=== PATIENT | male | born 1965 | race Caucasian/White ===

== ENCOUNTER 2020-09-08 11:14 | Inpatient (IN) ==
[2020-09-08] MEDS ORDERED: Isovue-370 500 ML BOTTLE IVP ONE (11:20)
[2020-09-08] MEDS ORDERED: Ondansetron 4 MG/2 ML VIAL IVP ONE (11:20)
[2020-09-08] MEDS ORDERED: 0.9 % Sodium Chloride 1,000 ML IVC ONE (11:20)
[2020-09-08] MEDS ORDERED: *HR* HYDROmorphone (PF) 1 MG/ML SYRINGE IVP ONE ×3 (11:35→15:37)
[2020-09-08 11:54] LABS: Basophils # 0.1 K/mcL (0.0-0.2); Basophils % 0.5 %; Eosinophils # 0.1 K/mcL (0.0-0.6); Hematocrit 46.4 % (37.5-50.1); Hemoglobin 15.4 g/dL (12.9-16.9); Immature Granulocytes % 0.6 % (0-4); Lymphocytes # 2.2 K/mcL (0.6-4.6); Lymphocytes % 16.2 %; Mean Corpuscular HGB Conc 33.2 g/dL (31.6-35.5); Mean Corpuscular Hemoglobin 28.5 pg (28.0-33.3); Mean Corpuscular Volume 85.9 fL (83.0-100.0); Mean Platelet Volume 9.8 fL (9.4-12.4); Monocytes # 1.2 K/mcL (0.0-1.3); Monocytes % 8.3 %; Neutrophils # 10.1 K/mcL (1.6-8.9); Platelet Count 380 K/mcL (140-400); Red Cell Distribution Width 13.6 % (11.5-14.5); Segmented Neutrophils % 73.4 %; White Blood Count 13.8 K/mcL (4.3-11.1)
[2020-09-08 12:13] LABS: Alanine Aminotransferase 23 Units/L (7-52); Albumin 4.2 g/dL (3.5-5.7); Albumin/Globulin Ratio 1.2 (1.1-2.2); Alkaline Phosphatase 77 Units/L (34-104); Aspartate Amino Transferase 23 Units/L (13-39); BUN/Creatinine Ratio 14 (6-26); Bilirubin,Direct 0.1 mg/dL (0.0-0.2); Bilirubin,Indirect 0.7 mg/dL (0.0-1.0); Bilirubin,Total 0.8 mg/dL (0.3-1.0); Blood Urea Nitrogen 13 mg/dL (6-20); Calcium 9.6 mg/dL (8.6-10.3); Carbon Dioxide 23 mEq/L (23-29); Chloride 101 mEq/L (98-107); Globulin 3.4 g/dL (2.4-3.5); Glucose 131 mg/dL (70-105); Lipase 9 Units/L (11-82); Osmolality,Calculated 280 (280-300); Potassium 4.1 mEq/L (3.5-5.1); Sodium 134 mEq/L (136-145); Total Protein 7.6 g/dL (6.4-8.9); eGFR For African Americans > 60 (> 60); eGFR For Non-African Americans > 60 (> 60)
[2020-09-08 13:11] LABS: Bacteria,Urine Few per hpf (None-Few); Bilirubin,Urine Negative (Negative); Blood,Urine Trace (Negative); Clarity,Urine Clear (Clear); Color,Urine Yellow (Yellow); Glucose,Urine (UA) Normal (Normal); Ketones,Urine 20 mg/dL (Negative); Leukocyte Esterase,Urine Negative (Negative); Mucus,Urine Few per lpf (None-Few); Nitrite,Urine Negative (Negative); PH,Urine 6.5 pH Units (5.0-8.0); Protein,Urine 50 mg/dL (Neg-Trace); Specific Gravity,Urine 1.023 (1.010-1.025); WBC,Urine 0-3 per hpf (0-3)
[2020-09-08] MEDS ORDERED: *HR* LORazepam 2 MG/ML VIAL IVP ONE (14:15)
[2020-09-08] MEDS ORDERED: Piperacillin/Tazobactam 3.375 GM in Water for inj. (sterile) 20 ML IVP ONE (15:37)
[2020-09-08] MEDS ORDERED: 0.9 % Sodium Chloride 1,000 ML IVC SCH (15:45)
[2020-09-08] MEDS ORDERED: Naloxone 0.4 MG/ML INJ IVP PRN (15:50)
[2020-09-08] MEDS ORDERED: Ondansetron 4 MG/2 ML VIAL IVP PRN ×2 (15:50→21:55)
[2020-09-08] MEDS ORDERED: *HR* Dextrose 50 % in Water (Vial) 50 ML VIAL IVP PRN (15:52)
[2020-09-08] MEDS ORDERED: Dextrose Gel 15 GM/37.5 ML TUBE PO PRN ×2 (15:52)
[2020-09-08] MEDS ORDERED: D5% in Water 1,000 ML IVC PRN (15:52)
[2020-09-08] MEDS ORDERED: Ringers Solution, Lactated 1,000 ML IVC SCH (16:00)
[2020-09-08] MEDS ORDERED: Piperacillin/Tazobactam 3.375 GM in 0.9 % Sodium Chloride Mini Bag 100 ML IVPB SCH (16:00)
[2020-09-08] MEDS ORDERED: Ipratropium/Albuterol Neb 3 ML IH PRN (16:10)
[2020-09-08] MEDS ORDERED: Insulin LISPRO 300 UNITS/3 ML VIAL SUBQ SCH (18:00)
[2020-09-08 18:32] LABS: INR 1.2; Prothrombin Time 13.3 Seconds (9.4-12.1)
[2020-09-08 18:34] LABS: Activated Partial Thrombo Time 28.2 Seconds (26.0-36.0)
[2020-09-08] MEDS ORDERED: Morphine Sulfate 2 MG/ML SYRINGE IVP ONE (19:42)
[2020-09-08] MEDS ORDERED: Acetaminophen IV 1,000 MG/100 ML BAG IVPB ONE (19:47)
[2020-09-08] MEDS ORDERED: Famotidine 20 MG/2 ML VIAL ONE (19:47)
[2020-09-08] MEDS ORDERED: *HR* Propofol 200 MG/20 ML VIAL IVP ONE ×2 (22:00→23:08)
[2020-09-08] MEDS ORDERED: Ondansetron 4 MG/2 ML VIAL ONE (22:00)
[2020-09-08] MEDS ORDERED: *HR* Rocuronium Bromide 50 MG/5 ML VIAL ONE (22:00)
[2020-09-08] MEDS ORDERED: Lidocaine HCL 4 ML Topical Solution (Laryng-O-Jet Kit Sterile Pak) TP ONE (22:00)
[2020-09-08] MEDS ORDERED: Lidocaine -MPF 2% 2 ML VIAL ONE (22:00)
[2020-09-08] MEDS ORDERED: *HR* FentaNYL (PF) 100 MCG/2 ML VIAL ONE ×2 (22:00→23:41)
[2020-09-08] MEDS ORDERED: *HR* HYDROMORPHONE 2 MG/ML VIAL ONE (23:02)
[2020-09-09] MEDS: *HR* HYDROmorphone PF 0.5 MG/0.5 ML SYRINGE IVP PRN ×4 (00:09→00:27)
[2020-09-09] MEDS ORDERED: Ketorolac 30 MG/ML VIAL IVP ONE (00:24)
[2020-09-09] MEDS ORDERED: *HR* Labetalol 20 MG/4 ML SYRINGE IVP ONE (00:38)
[2020-09-09] MEDS: *HR* Labetalol 20 MG/4 ML SYRINGE IVP PRN ×4 (00:40→01:06)
[2020-09-09] MEDS: *HR* HYDROmorphone (PF) 1 MG/ML SYRINGE IVP PRN ×2 (00:48→01:06)
[2020-09-09] MEDS ORDERED: Ondansetron 4 MG/2 ML VIAL IVP PRN (01:18)
[2020-09-09] MEDS ORDERED: D5% in Water 1,000 ML IVC PRN (01:18)
[2020-09-09] MEDS ORDERED: Dextrose Gel 15 GM/37.5 ML TUBE PO PRN ×2 (01:18)
[2020-09-09] MEDS ORDERED: *HR* Dextrose 50 % in Water (Vial) 50 ML VIAL IVP PRN (01:18)
[2020-09-09] MEDS ORDERED: Ringers Solution, Lactated 1,000 ML IVC SCH (01:18)
[2020-09-09] MEDS ORDERED: Naloxone 0.4 MG/ML INJ IVP PRN (01:18)
[2020-09-09] MEDS ORDERED: Ipratropium/Albuterol Neb 3 ML IH PRN (01:18)
[2020-09-09] MEDS: 0.9 % Sodium Chloride 1,000 ML IVC SCH ×3 (01:30→17:54)
[2020-09-09] MEDS ORDERED: *HR* HYDROmorphone (PF) 1 MG/ML SYRINGE IVP ONE (04:53)
[2020-09-09] MEDS: Insulin LISPRO 300 UNITS/3 ML VIAL SUBQ SCH ×3 (05:37→17:55)
[2020-09-09 07:40] LABS: Basophils % 0.2 %; Hematocrit 38.8 % (37.5-50.1); Immature Granulocytes % 0.5 % (0-4); Lymphocytes # 1.1 K/mcL (0.6-4.6); Lymphocytes % 8.2 %; Mean Corpuscular HGB Conc 33.2 g/dL (31.6-35.5); Mean Corpuscular Hemoglobin 28.4 pg (28.0-33.3); Mean Corpuscular Volume 85.5 fL (83.0-100.0); Mean Platelet Volume 10.7 fL (9.4-12.4); Monocytes # 0.9 K/mcL (0.0-1.3); Monocytes % 6.9 %; Platelet Count 342 K/mcL (140-400); Red Blood Count 4.54 M/mcL (4.19-5.50); Red Cell Distribution Width 13.7 % (11.5-14.5); Segmented Neutrophils % 84.2 %; White Blood Count 13.1 K/mcL (4.3-11.1)
[2020-09-09 07:44] LABS: Hemoglobin 12.9 g/dL (12.9-16.9)
[2020-09-09 07:55] LABS: BUN/Creatinine Ratio 17 (6-26); Blood Urea Nitrogen 15 mg/dL (6-20); Calcium 8.3 mg/dL (8.6-10.3); Carbon Dioxide 24 mEq/L (23-29); Chloride 103 mEq/L (98-107); Glucose 179 mg/dL (70-105); Magnesium 1.7 mg/dL (1.6-2.6); Osmolality,Calculated 287 (280-300); Potassium 3.9 mEq/L (3.5-5.1); Sodium 136 mEq/L (136-145); eGFR For African Americans > 60 (> 60); eGFR For Non-African Americans > 60 (> 60)
[2020-09-09] MEDS: Morphine Sulfate 2 MG/ML SYRINGE IVP PRN ×4 (08:02→20:16)
[2020-09-09] MEDS: Piperacillin/Tazobactam 3.375 GM in 0.9 % Sodium Chloride Mini Bag 100 ML IVPB SCH ×2 (08:07→15:52)
[2020-09-09] MEDS ORDERED: ICYHOT TP PRN (19:43)
[2020-09-09 20:14] LABS: Acinetobacter baumannii by PCR Not Detected (Not Detect); Candida albicans by PCR Not Detected (Not Detect); Candida glabrata by PCR Not Detected (Not Detect); Candida krusei by PCR Not Detected (Not Detect); Candida parapsilosis by PCR Not Detected (Not Detect); Candida tropicalis by PCR Not Detected (Not Detect); Enterobacter cloacae Cmplx PCR Not Detected (Not Detect); Enterobacteriaceae by PCR Not Detected (Not Detect); Enterococcus by PCR Not Detected (Not Detect); Escherichia coli by PCR Not Detected (Not Detect); Klebsiella oxytoca by PCR Not Detected (Not Detect); Klebsiella pneumoniae by PCR Not Detected (Not Detect); Proteus by PCR Not Detected (Not Detect); Pseudomonas aeruginosa by PCR Not Detected (Not Detect); Serratia marcescens by PCR Not Detected (Not Detect); Staphylococcus aureus by PCR Not Detected (Not Detect); Staphylococcus by PCR Not Detected (Not Detect); Streptococcus agalactiae(B)PCR Not Detected (Not Detect); Streptococcus by PCR Not Detected (Not Detect); Streptococcus pneumoniae PCR Not Detected (Not Detect); Streptococcus pyogenes (A) PCR Not Detected (Not Detect); mecA Methicillin-Resist Gene Not Detected (Not Detect); vanA/B Vancomycin-Resist Genes Not Detected (Not Detect)
[2020-09-10] MEDS: Insulin LISPRO 300 UNITS/3 ML VIAL SUBQ SCH ×4 (00:04→19:10)
[2020-09-10] MEDS: Morphine Sulfate 2 MG/ML SYRINGE IVP PRN ×6 (00:06→23:33)
[2020-09-10] MEDS: Piperacillin/Tazobactam 3.375 GM in 0.9 % Sodium Chloride Mini Bag 100 ML IVPB SCH ×4 (00:07→23:33)
[2020-09-10] MEDS: 0.9 % Sodium Chloride 1,000 ML IVC SCH (01:58)
[2020-09-10] MEDS ORDERED: *HR* HYDROmorphone (PF) 1 MG/ML SYRINGE IVP ONE (02:04)
[2020-09-10 04:22] LABS: Basophils % 0.2 %; Eosinophils % 0.2 %; Hematocrit 38.2 % (37.5-50.1); Hemoglobin 12.8 g/dL (12.9-16.9); Immature Granulocytes % 0.5 % (0-4); Lymphocytes # 1.3 K/mcL (0.6-4.6); Lymphocytes % 7.3 %; Mean Corpuscular HGB Conc 33.5 g/dL (31.6-35.5); Mean Corpuscular Hemoglobin 28.4 pg (28.0-33.3); Mean Corpuscular Volume 84.7 fL (83.0-100.0); Mean Platelet Volume 9.9 fL (9.4-12.4); Monocytes # 1.2 K/mcL (0.0-1.3); Monocytes % 6.8 %; Neutrophils # 15.6 K/mcL (1.6-8.9); Platelet Count 385 K/mcL (140-400); Red Blood Count 4.51 M/mcL (4.19-5.50); Red Cell Distribution Width 13.9 % (11.5-14.5); White Blood Count 18.3 K/mcL (4.3-11.1)
[2020-09-10 04:44] LABS: BUN/Creatinine Ratio 18 (6-26); Blood Urea Nitrogen 14 mg/dL (6-20); Calcium 8.4 mg/dL (8.6-10.3); Carbon Dioxide 23 mEq/L (23-29); Chloride 105 mEq/L (98-107); Glucose 136 mg/dL (70-105); Magnesium 1.8 mg/dL (1.6-2.6); Osmolality,Calculated 287 (280-300); Phosphorous 2.5 mg/dL (2.7-4.5); Potassium 3.9 mEq/L (3.5-5.1); Sodium 137 mEq/L (136-145); eGFR For African Americans > 60 (> 60); eGFR For Non-African Americans > 60 (> 60)
[2020-09-10] MEDS ORDERED: Ketorolac 30 MG/ML VIAL IVP ONE (05:10)
[2020-09-10] MEDS ORDERED: Fluconazole 400 MG/200 ML 400 MG/200 ML BAG IVPB ONE (06:45)
[2020-09-10] MEDS ORDERED: 0.9 % Sodium Chloride 1,000 ML IVC SCH (07:41)
[2020-09-10] MEDS ORDERED: Methyl Salicylate/Menthol 85 APPL/85 GM TUBE TP PRN (10:17)
[2020-09-10] MEDS: *HR* Heparin 5,000 UNIT/ML VIAL SQ SCH (17:35)
[2020-09-11] MEDS: Insulin LISPRO 300 UNITS/3 ML VIAL SUBQ SCH ×4 (00:52→17:23)
[2020-09-11] MEDS: Morphine Sulfate 2 MG/ML SYRINGE IVP PRN ×3 (03:37→16:56)
[2020-09-11] MEDS: *HR* Heparin 5,000 UNIT/ML VIAL SQ SCH ×2 (05:20→16:57)
[2020-09-11 06:26] LABS: Basophils % 0.3 %; Eosinophils # 0.1 K/mcL (0.0-0.6); Eosinophils % 0.5 %; Hematocrit 35.3 % (37.5-50.1); Immature Granulocytes % 0.8 % (0-4); Lymphocytes # 1.6 K/mcL (0.6-4.6); Lymphocytes % 10.4 %; Mean Corpuscular Hemoglobin 28.9 pg (28.0-33.3); Mean Corpuscular Volume 85.1 fL (83.0-100.0); Mean Platelet Volume 10.4 fL (9.4-12.4); Monocytes # 1.2 K/mcL (0.0-1.3); Monocytes % 7.4 %; Neutrophils # 12.7 K/mcL (1.6-8.9); Platelet Count 399 K/mcL (140-400); Red Blood Count 4.15 M/mcL (4.19-5.50); Red Cell Distribution Width 14.2 % (11.5-14.5); Segmented Neutrophils % 80.6 %; White Blood Count 15.8 K/mcL (4.3-11.1)
[2020-09-11 06:49] LABS: BUN/Creatinine Ratio 21 (6-26); Blood Urea Nitrogen 16 mg/dL (6-20); Calcium 8.4 mg/dL (8.6-10.3); Carbon Dioxide 25 mEq/L (23-29); Chloride 105 mEq/L (98-107); Glucose 102 mg/dL (70-105); Magnesium 1.9 mg/dL (1.6-2.6); Osmolality,Calculated 289 (280-300); Phosphorous 3.1 mg/dL (2.7-4.5); Potassium 3.6 mEq/L (3.5-5.1); Sodium 139 mEq/L (136-145); eGFR For African Americans > 60 (> 60); eGFR For Non-African Americans > 60 (> 60)
[2020-09-11] MEDS: Piperacillin/Tazobactam 3.375 GM in 0.9 % Sodium Chloride Mini Bag 100 ML IVPB SCH ×2 (07:41→15:39)
[2020-09-11] MEDS: Fluconazole 200 MG/100 ML 200 MG/100 ML BAG IVPB SCH (07:41)
[2020-09-11] MEDS: Ketorolac 30 MG/ML VIAL IVP SCH ×3 (08:39→20:15)
[2020-09-11] MEDS: Acetaminophen IV 1,000 MG/100 ML BAG IVPB SCH ×3 (09:48→20:16)
[2020-09-11] MEDS: 0.9 % Sodium Chloride 1,000 ML IVC SCH (11:34)
[2020-09-11] MEDS: Ondansetron 4 MG/2 ML VIAL IVP PRN ×2 (11:40→23:24)
[2020-09-12] MEDS: Piperacillin/Tazobactam 3.375 GM in 0.9 % Sodium Chloride Mini Bag 100 ML IVPB SCH ×2 (00:22→11:16)
[2020-09-12] MEDS: 0.9 % Sodium Chloride 1,000 ML IVC SCH ×3 (00:23→23:58)
[2020-09-12] MEDS: Morphine Sulfate 2 MG/ML SYRINGE IVP PRN ×5 (00:45→23:48)
[2020-09-12] MEDS: Insulin LISPRO 300 UNITS/3 ML VIAL SUBQ SCH ×4 (00:50→17:42)
[2020-09-12] MEDS: Ketorolac 30 MG/ML VIAL IVP SCH ×4 (03:28→20:15)
[2020-09-12] MEDS: Acetaminophen IV 1,000 MG/100 ML BAG IVPB SCH ×4 (03:28→20:15)
[2020-09-12] MEDS: *HR* Heparin 5,000 UNIT/ML VIAL SQ SCH ×2 (05:09→16:53)
[2020-09-12 07:00] LABS: Basophils # 0.1 K/mcL (0.0-0.2); Basophils % 0.3 %; Eosinophils # 0.1 K/mcL (0.0-0.6); Eosinophils % 0.8 %; Hematocrit 35.9 % (37.5-50.1); Hemoglobin 11.8 g/dL (12.9-16.9); Immature Granulocytes % 0.8 % (0-4); Lymphocytes # 1.7 K/mcL (0.6-4.6); Mean Corpuscular HGB Conc 32.9 g/dL (31.6-35.5); Mean Corpuscular Hemoglobin 28.2 pg (28.0-33.3); Mean Corpuscular Volume 85.9 fL (83.0-100.0); Mean Platelet Volume 10.2 fL (9.4-12.4); Monocytes # 1.4 K/mcL (0.0-1.3); Monocytes % 8.3 %; Neutrophils # 13.8 K/mcL (1.6-8.9); Platelet Count 452 K/mcL (140-400); Red Blood Count 4.18 M/mcL (4.19-5.50); Red Cell Distribution Width 14.3 % (11.5-14.5); Segmented Neutrophils % 79.8 %; White Blood Count 17.3 K/mcL (4.3-11.1)
[2020-09-12 07:48] LABS: BUN/Creatinine Ratio 26 (6-26); Blood Urea Nitrogen 18 mg/dL (6-20); Calcium 8.5 mg/dL (8.6-10.3); Carbon Dioxide 21 mEq/L (23-29); Chloride 104 mEq/L (98-107); Glucose 85 mg/dL (70-105); Magnesium 1.9 mg/dL (1.6-2.6); Osmolality,Calculated 285 (280-300); Phosphorous 3.3 mg/dL (2.7-4.5); Potassium 3.4 mEq/L (3.5-5.1); Sodium 137 mEq/L (136-145); eGFR For African Americans > 60 (> 60); eGFR For Non-African Americans > 60 (> 60)
[2020-09-12] MEDS: Fluconazole 200 MG/100 ML 200 MG/100 ML BAG IVPB SCH (08:32)
[2020-09-12] MEDS ORDERED: Ondansetron ODT 4 MG TAB.RAPDIS SL ONE (09:29)
[2020-09-12] MEDS: Ondansetron 4 MG/2 ML VIAL IVP PRN (11:22)
[2020-09-12] MEDS ORDERED: Scopolamine Patch 1.5 MG PATCH.TD72 TD ONE (13:18)
[2020-09-12] MEDS ORDERED: Metoclopramide 20 MG in 0.9 % Sodium Chloride 50 ML IVPB SCH (13:30)
[2020-09-12] MEDS ORDERED: Ondansetron 4 MG/2 ML VIAL IVP PRN ×2 (13:50→20:53)
[2020-09-12] MEDS ORDERED: Vancomycin 1,250 MG/262.5 ML IV.SOLN IVPB SCH (15:00)
[2020-09-12] MEDS ORDERED: Piperacillin/Tazobactam 3.375 GM in 0.9 % Sodium Chloride Mini Bag 100 ML IVPB SCH (19:00)
[2020-09-12] MEDS ORDERED: Ondansetron 4 MG/2 ML VIAL IVP ONE (19:03)
[2020-09-12] MEDS ORDERED: Morphine Sulfate 2 MG/ML SYRINGE IVP ONE (19:18)
[2020-09-12] MEDS ORDERED: *HR* Promethazine 25 MG/ML VIAL IM ONE (19:49)
[2020-09-12] MEDS ORDERED: *HR* Propofol 200 MG/20 ML VIAL IVP ONE (21:01)
[2020-09-12] MEDS ORDERED: *HR* FentaNYL (PF) 100 MCG/2 ML VIAL ONE (21:01)
[2020-09-12] MEDS ORDERED: Ondansetron 4 MG/2 ML VIAL ONE (21:02)
[2020-09-12] MEDS ORDERED: *HR* Rocuronium Bromide 50 MG/5 ML VIAL ONE (21:02)
[2020-09-12] MEDS ORDERED: Lidocaine HCL 4 ML Topical Solution (Laryng-O-Jet Kit Sterile Pak) TP ONE (21:02)
[2020-09-12] MEDS ORDERED: *HR* Succinylcholine 200 MG/10 ML VIAL IVP ONE (21:02)
[2020-09-12] MEDS ORDERED: Lidocaine -MPF 2% 2 ML VIAL ONE (21:02)
[2020-09-12] MEDS ORDERED: CefOXitin 2,000 MG VIAL ONE (21:43)
[2020-09-12] MEDS ORDERED: *HR* Labetalol 20 MG/4 ML SYRINGE IVP ONE (21:46)
[2020-09-12] MEDS ORDERED: Sugammadex Sodium 200 MG/2 ML VIAL IV ONE (22:14)
[2020-09-12] MEDS: *HR* HYDROmorphone PF 0.5 MG/0.5 ML SYRINGE IVP PRN ×4 (22:37→23:02)
[2020-09-12] MEDS ORDERED: Ringers Solution, Lactated 1,000 ML ONE (23:09)
[2020-09-13] MEDS ORDERED: *HR* Dextrose 50 % in Water (Vial) 50 ML VIAL IVP PRN (01:01)
[2020-09-13] MEDS ORDERED: Ipratropium/Albuterol Neb 3 ML IH PRN (01:01)
[2020-09-13] MEDS ORDERED: Methyl Salicylate/Menthol 85 APPL/85 GM TUBE TP PRN (01:01)
[2020-09-13] MEDS ORDERED: D5% in Water 1,000 ML IVC PRN (01:01)
[2020-09-13] MEDS ORDERED: Ondansetron 4 MG/2 ML VIAL IVP PRN (01:01)
[2020-09-13] MEDS ORDERED: Dextrose Gel 15 GM/37.5 ML TUBE PO PRN ×2 (01:01)
[2020-09-13] MEDS ORDERED: Naloxone 0.4 MG/ML INJ IVP PRN (01:01)
[2020-09-13] MEDS: Ketorolac 30 MG/ML VIAL IVP SCH ×2 (01:21→08:46)
[2020-09-13] MEDS: Piperacillin/Tazobactam 3.375 GM in 0.9 % Sodium Chloride Mini Bag 100 ML IVPB SCH ×3 (03:07→19:21)
[2020-09-13] MEDS: Acetaminophen IV 1,000 MG/100 ML BAG IVPB SCH ×5 (03:27→23:42)
[2020-09-13] MEDS: Vancomycin 1,250 MG/262.5 ML IV.SOLN IVPB SCH ×2 (03:27→15:48)
[2020-09-13 03:46] LABS: Basophils % 0.1 %; Hematocrit 29.7 % (37.5-50.1); Hemoglobin 10.3 g/dL (12.9-16.9); Lymphocytes # 0.9 K/mcL (0.6-4.6); Lymphocytes % 5.6 %; Mean Corpuscular HGB Conc 34.7 g/dL (31.6-35.5); Mean Corpuscular Volume 83.7 fL (83.0-100.0); Mean Platelet Volume 9.8 fL (9.4-12.4); Monocytes # 0.4 K/mcL (0.0-1.3); Monocytes % 2.7 %; Platelet Count 455 K/mcL (140-400); Red Blood Count 3.55 M/mcL (4.19-5.50); Red Cell Distribution Width 14.1 % (11.5-14.5); Segmented Neutrophils % 90.6 %; White Blood Count 15.5 K/mcL (4.3-11.1)
[2020-09-13 04:00] LABS: BUN/Creatinine Ratio 24 (6-26); Blood Urea Nitrogen 15 mg/dL (6-20); Calcium 8.2 mg/dL (8.6-10.3); Carbon Dioxide 22 mEq/L (23-29); Chloride 103 mEq/L (98-107); Glucose 135 mg/dL (70-105); Magnesium 2.2 mg/dL (1.6-2.6); Osmolality,Calculated 289 (280-300); Phosphorous 3.5 mg/dL (2.7-4.5); Potassium 3.8 mEq/L (3.5-5.1); Sodium 138 mEq/L (136-145); eGFR For African Americans > 60 (> 60); eGFR For Non-African Americans > 60 (> 60)
[2020-09-13] MEDS: 0.9 % Sodium Chloride 1,000 ML IVC SCH ×2 (04:58→14:59)
[2020-09-13] MEDS: Morphine Sulfate 2 MG/ML SYRINGE IVP PRN ×4 (05:06→21:09)
[2020-09-13] MEDS: *HR* Heparin 5,000 UNIT/ML VIAL SQ SCH ×2 (05:43→18:42)
[2020-09-13] MEDS ORDERED: *HR* Metoprolol 5 MG/5 ML VIAL IVP ONE (08:21)
[2020-09-13] MEDS: Fluconazole 200 MG/100 ML 200 MG/100 ML BAG IVPB SCH (08:48)
[2020-09-13] MEDS: amLODIPine 5 MG TABLET PO SCH (08:51)
[2020-09-13] MEDS ORDERED: amLODIPine 5 MG TABLET PO SCH (09:00)
[2020-09-13] MEDS ORDERED: *HR* LORazepam 2 MG/ML VIAL IVP PRN (09:15)
[2020-09-13] MEDS: Insulin LISPRO 300 UNITS/3 ML VIAL SUBQ SCH ×4 (11:22→19:31)
[2020-09-13] MEDS: Ondansetron 4 MG/2 ML VIAL IVP PRN (16:57)
[2020-09-13] MEDS: Ketorolac 15 MG/ML VIAL IVP SCH ×2 (18:42→23:42)
[2020-09-13] MEDS: *HR* Metoprolol 5 MG/5 ML VIAL IVP PRN (18:42)
[2020-09-14 02:17] LABS: Basophils % 0.2 %; Eosinophils % 0.1 %; Hematocrit 33.9 % (37.5-50.1); Lymphocytes # 2.8 K/mcL (0.6-4.6); Lymphocytes % 15.4 %; Mean Corpuscular HGB Conc 35.1 g/dL (31.6-35.5); Mean Corpuscular Volume 82.5 fL (83.0-100.0); Mean Platelet Volume 9.9 fL (9.4-12.4); Monocytes # 1.5 K/mcL (0.0-1.3); Monocytes % 8.3 %; Neutrophils # 13.9 K/mcL (1.6-8.9); Platelet Count 651 K/mcL (140-400); Red Blood Count 4.11 M/mcL (4.19-5.50); Red Cell Distribution Width 14.3 % (11.5-14.5); White Blood Count 18.5 K/mcL (4.3-11.1)
[2020-09-14] MEDS: Insulin LISPRO 300 UNITS/3 ML VIAL SUBQ SCH ×2 (02:21→06:10)
[2020-09-14 02:28] LABS: Hemoglobin 11.9 g/dL (12.9-16.9)
[2020-09-14 02:39] LABS: BUN/Creatinine Ratio 25 (6-26); Blood Urea Nitrogen 18 mg/dL (6-20); Carbon Dioxide 25 mEq/L (23-29); Chloride 104 mEq/L (98-107); Glucose 113 mg/dL (70-105); Osmolality,Calculated 293 (280-300); Potassium 3.4 mEq/L (3.5-5.1); Sodium 140 mEq/L (136-145); eGFR For African Americans > 60 (> 60); eGFR For Non-African Americans > 60 (> 60)
[2020-09-14] MEDS ORDERED: *HR* Metoprolol 5 MG/5 ML VIAL IVP ONE (03:10)
[2020-09-14] MEDS: *HR* Metoprolol 5 MG/5 ML VIAL IVP PRN (03:15)
[2020-09-14] MEDS: Piperacillin/Tazobactam 3.375 GM in 0.9 % Sodium Chloride Mini Bag 100 ML IVPB SCH ×3 (03:49→17:58)
[2020-09-14] MEDS: Vancomycin 1,250 MG/262.5 ML IV.SOLN IVPB SCH ×2 (04:19→15:28)
[2020-09-14] MEDS: Ketorolac 15 MG/ML VIAL IVP SCH (05:18)
[2020-09-14] MEDS: *HR* Heparin 5,000 UNIT/ML VIAL SQ SCH ×2 (05:19→17:50)
[2020-09-14] MEDS: Acetaminophen IV 1,000 MG/100 ML BAG IVPB SCH ×4 (06:13→23:47)
[2020-09-14] MEDS ORDERED: Potassium Chloride 20 MEQ, Lidocaine 1% 2 ML in 0.9 % Sodium Chloride 250 ML IVPB ONE (07:52)
[2020-09-14] MEDS: amLODIPine 5 MG TABLET PO SCH ×2 (09:45→17:49)
[2020-09-14] MEDS: 0.9 % Sodium Chloride 1,000 ML IVC SCH (09:45)
[2020-09-14] MEDS: Fluconazole 200 MG/100 ML 200 MG/100 ML BAG IVPB SCH (09:46)
[2020-09-14] MEDS: CloNIDine Patch 0.1 MG PATCH (WEEKLY) TD SCH (09:46)
[2020-09-14] MEDS ORDERED: lisinopriL 10 MG TABLET PO SCH (10:30)
[2020-09-14] MEDS: Morphine Sulfate 2 MG/ML SYRINGE IVP PRN ×3 (15:31→23:52)
[2020-09-15] MEDS: Vancomycin 1,250 MG/262.5 ML IV.SOLN IVPB SCH (02:47)
[2020-09-15] MEDS: Piperacillin/Tazobactam 3.375 GM in 0.9 % Sodium Chloride Mini Bag 100 ML IVPB SCH ×3 (02:48→19:33)
[2020-09-15 03:29] LABS: Basophils # 0.1 K/mcL (0.0-0.2); Basophils % 0.4 %; Eosinophils # 0.3 K/mcL (0.0-0.6); Eosinophils % 1.8 %; Hematocrit 36.1 % (37.5-50.1); Hemoglobin 11.8 g/dL (12.9-16.9); Immature Granulocytes % 1.4 % (0-4); Lymphocytes # 3.3 K/mcL (0.6-4.6); Lymphocytes % 21.1 %; Mean Corpuscular HGB Conc 32.7 g/dL (31.6-35.5); Mean Corpuscular Hemoglobin 27.8 pg (28.0-33.3); Mean Corpuscular Volume 85.1 fL (83.0-100.0); Mean Platelet Volume 9.7 fL (9.4-12.4); Monocytes # 1.3 K/mcL (0.0-1.3); Monocytes % 8.6 %; Neutrophils # 10.4 K/mcL (1.6-8.9); Platelet Count 687 K/mcL (140-400); Red Blood Count 4.24 M/mcL (4.19-5.50); Red Cell Distribution Width 14.6 % (11.5-14.5); Segmented Neutrophils % 66.7 %; White Blood Count 15.6 K/mcL (4.3-11.1)
[2020-09-15] MEDS: 0.9 % Sodium Chloride 1,000 ML IVC SCH ×3 (03:34→22:03)
[2020-09-15 03:44] LABS: BUN/Creatinine Ratio 19 (6-26); Blood Urea Nitrogen 11 mg/dL (6-20); eGFR For African Americans > 60 (> 60); eGFR For Non-African Americans > 60 (> 60)
[2020-09-15 03:46] LABS: BUN/Creatinine Ratio 18 (6-26); Blood Urea Nitrogen 11 mg/dL (6-20); Calcium 8.1 mg/dL (8.6-10.3); Carbon Dioxide 25 mEq/L (23-29); Chloride 103 mEq/L (98-107); Glucose 106 mg/dL (70-105); Magnesium 1.8 mg/dL (1.6-2.6); Osmolality,Calculated 284 (280-300); Phosphorous 2.3 mg/dL (2.7-4.5); Potassium 3.3 mEq/L (3.5-5.1); Sodium 137 mEq/L (136-145); eGFR For African Americans > 60 (> 60); eGFR For Non-African Americans > 60 (> 60)
[2020-09-15] MEDS: *HR* Heparin 5,000 UNIT/ML VIAL SQ SCH ×2 (04:42→19:33)
[2020-09-15] MEDS: Morphine Sulfate 2 MG/ML SYRINGE IVP PRN ×6 (04:43→20:30)
[2020-09-15] MEDS: Acetaminophen IV 1,000 MG/100 ML BAG IVPB SCH ×3 (05:28→19:55)
[2020-09-15] MEDS ORDERED: Potassium Chloride 20 MEQ, Lidocaine 1% 2 ML in 0.9 % Sodium Chloride 250 ML IVPB ONE (08:05)
[2020-09-15] MEDS: amLODIPine 5 MG TABLET PO SCH (09:05)
[2020-09-15] MEDS: lisinopriL 10 MG TABLET PO SCH (09:06)
[2020-09-15] MEDS: Fluconazole 200 MG/100 ML 200 MG/100 ML BAG IVPB SCH (09:11)
[2020-09-15] MEDS: Ondansetron 4 MG/2 ML VIAL IVP PRN (19:45)
[2020-09-16] MEDS: Acetaminophen IV 1,000 MG/100 ML BAG IVPB SCH ×4 (00:03→17:57)
[2020-09-16] MEDS: Piperacillin/Tazobactam 3.375 GM in 0.9 % Sodium Chloride Mini Bag 100 ML IVPB SCH ×3 (02:35→18:38)
[2020-09-16] MEDS: Ondansetron 4 MG/2 ML VIAL IVP PRN (04:14)
[2020-09-16] MEDS: Morphine Sulfate 2 MG/ML SYRINGE IVP PRN ×5 (04:16→22:23)
[2020-09-16] MEDS: *HR* Heparin 5,000 UNIT/ML VIAL SQ SCH ×2 (05:25→17:46)
[2020-09-16 05:59] LABS: Basophils # 0.1 K/mcL (0.0-0.2); Basophils % 0.5 %; Eosinophils # 0.3 K/mcL (0.0-0.6); Hematocrit 36.7 % (37.5-50.1); Hemoglobin 12.3 g/dL (12.9-16.9); Immature Granulocytes % 2.1 % (0-4); Lymphocytes # 2.8 K/mcL (0.6-4.6); Lymphocytes % 19.9 %; Mean Corpuscular HGB Conc 33.5 g/dL (31.6-35.5); Mean Corpuscular Hemoglobin 28.6 pg (28.0-33.3); Mean Corpuscular Volume 85.3 fL (83.0-100.0); Mean Platelet Volume 9.4 fL (9.4-12.4); Monocytes # 1.1 K/mcL (0.0-1.3); Monocytes % 7.7 %; Neutrophils # 9.4 K/mcL (1.6-8.9); Platelet Count 735 K/mcL (140-400); Red Cell Distribution Width 14.8 % (11.5-14.5); Segmented Neutrophils % 67.8 %; White Blood Count 13.9 K/mcL (4.3-11.1)
[2020-09-16 06:21] LABS: BUN/Creatinine Ratio 18 (6-26); Blood Urea Nitrogen 12 mg/dL (6-20); Calcium 8.3 mg/dL (8.6-10.3); Carbon Dioxide 24 mEq/L (23-29); Chloride 106 mEq/L (98-107); Glucose 115 mg/dL (70-105); Osmolality,Calculated 287 (280-300); Potassium 3.9 mEq/L (3.5-5.1); Sodium 138 mEq/L (136-145); eGFR For African Americans > 60 (> 60); eGFR For Non-African Americans > 60 (> 60)
[2020-09-16] MEDS ORDERED: Lidocaine -MPF 1% 5 ML AMPUL INFILT ONE (08:18)
[2020-09-16] MEDS: lisinopriL 10 MG TABLET PO SCH (08:48)
[2020-09-16] MEDS: amLODIPine 5 MG TABLET PO SCH (08:48)
[2020-09-16] MEDS: Fluconazole 200 MG/100 ML 200 MG/100 ML BAG IVPB SCH (08:50)
[2020-09-16 09:38] LABS: Phosphorous 3.1 mg/dL (2.7-4.5)
[2020-09-16 09:56] LABS: Estimated Average Glucose 134 mg/dl; Hemoglobin A1C 6.3 %
[2020-09-16] MEDS: Pantoprazole 40 MG VIAL IVP SCH (11:07)
[2020-09-16] MEDS ORDERED: D10% in Water 500 ML IVC PRN (11:07)
[2020-09-16] MEDS: 0.9 % Sodium Chloride 1,000 ML IVC SCH (11:08)
[2020-09-16] MEDS ORDERED: Insulin LISPRO 300 UNITS/3 ML VIAL SUBQ SCH (12:00)
[2020-09-16] MEDS: Insulin LISPRO 300 UNITS/3 ML VIAL SUBQ SCH ×3 (12:35→21:08)
[2020-09-16] MEDS ORDERED: Clinimix E 5%-15% SOLUTION 2,000 ML with MVI, adult with vitamin K 10 ML IVC SCH (17:00)
[2020-09-17] MEDS: Insulin LISPRO 300 UNITS/3 ML VIAL SUBQ SCH ×6 (00:33→20:40)
[2020-09-17] MEDS: 0.9 % Sodium Chloride 1,000 ML IVC SCH ×2 (00:40→16:25)
[2020-09-17] MEDS: Acetaminophen IV 1,000 MG/100 ML BAG IVPB SCH ×3 (00:41→12:24)
[2020-09-17] MEDS: Piperacillin/Tazobactam 3.375 GM in 0.9 % Sodium Chloride Mini Bag 100 ML IVPB SCH ×3 (03:11→19:20)
[2020-09-17] MEDS: Morphine Sulfate 2 MG/ML SYRINGE IVP PRN ×3 (05:41→20:15)
[2020-09-17] MEDS: *HR* Heparin 5,000 UNIT/ML VIAL SQ SCH ×2 (05:47→19:20)
[2020-09-17 05:57] LABS: BUN/Creatinine Ratio 17 (6-26); Blood Urea Nitrogen 11 mg/dL (6-20); Calcium 8.2 mg/dL (8.6-10.3); Carbon Dioxide 26 mEq/L (23-29); Chloride 104 mEq/L (98-107); Glucose 116 mg/dL (70-105); Osmolality,Calculated 286 (280-300); Potassium 3.9 mEq/L (3.5-5.1); Sodium 138 mEq/L (136-145); eGFR For African Americans > 60 (> 60); eGFR For Non-African Americans > 60 (> 60)
[2020-09-17 06:13] LABS: Magnesium 1.8 mg/dL (1.6-2.6); Phosphorous 2.9 mg/dL (2.7-4.5)
[2020-09-17 06:31] LABS: Basophils # 0.2 K/mcL (0.0-0.2); Basophils % 1.1 %; Eosinophils # 0.6 K/mcL (0.0-0.6); Eosinophils % 3.9 %; Hemoglobin 11.4 g/dL (12.9-16.9); Immature Granulocytes % 2.4 % (0-4); Lymphocytes # 2.7 K/mcL (0.6-4.6); Lymphocytes % 19.2 %; Mean Corpuscular Hemoglobin 28.4 pg (28.0-33.3); Monocytes % 7.4 %; Neutrophils # 9.2 K/mcL (1.6-8.9); Platelet Count 575 K/mcL (140-400); Red Blood Count 4.01 M/mcL (4.19-5.50); Red Cell Distribution Width 15.5 % (11.5-14.5)
[2020-09-17 06:58] LABS: Mean Corpuscular Volume 94.8 fL (83.0-100.0)
[2020-09-17] MEDS: Pantoprazole 40 MG VIAL IVP SCH (10:02)
[2020-09-17] MEDS: amLODIPine 5 MG TABLET PO SCH (10:03)
[2020-09-17] MEDS: Fluconazole 100 MG TABLET PO SCH (10:03)
[2020-09-17] MEDS: lisinopriL 10 MG TABLET PO SCH (10:03)
[2020-09-17] MEDS: Acetaminophen 325 MG TABLET PO PRN ×2 (12:42→19:19)
[2020-09-17] MEDS ORDERED: Clinimix E 5%-15% SOLUTION 2,000 ML with MVI, adult with vitamin K 10 ML IVC SCH (17:00)
[2020-09-18] MEDS: Morphine Sulfate 2 MG/ML SYRINGE IVP PRN ×5 (00:45→20:34)
[2020-09-18] MEDS: Insulin LISPRO 300 UNITS/3 ML VIAL SUBQ SCH ×6 (01:00→22:39)
[2020-09-18] MEDS: 0.9 % Sodium Chloride 1,000 ML IVC SCH ×2 (01:01→12:02)
[2020-09-18] MEDS: Piperacillin/Tazobactam 3.375 GM in 0.9 % Sodium Chloride Mini Bag 100 ML IVPB SCH ×3 (03:05→17:49)
[2020-09-18] MEDS: *HR* Heparin 5,000 UNIT/ML VIAL SQ SCH (05:53)
[2020-09-18] MEDS: amLODIPine 5 MG TABLET PO SCH (08:36)
[2020-09-18] MEDS: Fluconazole 100 MG TABLET PO SCH (08:37)
[2020-09-18] MEDS: lisinopriL 10 MG TABLET PO SCH (08:37)
[2020-09-18 11:46] LABS: BUN/Creatinine Ratio 20 (6-26); Blood Urea Nitrogen 13 mg/dL (6-20); Calcium 8.3 mg/dL (8.6-10.3); Carbon Dioxide 24 mEq/L (23-29); Chloride 106 mEq/L (98-107); Glucose 134 mg/dL (70-105); Osmolality,Calculated 286 (280-300); Potassium 3.9 mEq/L (3.5-5.1); Sodium 137 mEq/L (136-145); eGFR For African Americans > 60 (> 60); eGFR For Non-African Americans > 60 (> 60)
[2020-09-18 11:47] LABS: Magnesium 1.9 mg/dL (1.6-2.6); Phosphorous 2.4 mg/dL (2.7-4.5)
[2020-09-18 14:21] LABS: Basophils # 0.1 K/mcL (0.0-0.2); Basophils % 0.6 %; Eosinophils # 0.5 K/mcL (0.0-0.6); Eosinophils % 3.2 %; Hemoglobin 12.1 g/dL (12.9-16.9); Immature Granulocytes % 1.3 % (0-4); Lymphocytes # 2.6 K/mcL (0.6-4.6); Mean Corpuscular HGB Conc 32.7 g/dL (31.6-35.5); Mean Corpuscular Hemoglobin 28.3 pg (28.0-33.3); Mean Corpuscular Volume 86.7 fL (83.0-100.0); Mean Platelet Volume 9.5 fL (9.4-12.4); Monocytes # 1.1 K/mcL (0.0-1.3); Neutrophils # 11.6 K/mcL (1.6-8.9); Platelet Count 791 K/mcL (140-400); Red Blood Count 4.27 M/mcL (4.19-5.50); Segmented Neutrophils % 71.9 %; White Blood Count 16.2 K/mcL (4.3-11.1)
[2020-09-18] MEDS ORDERED: Clinimix E 5%-15% SOLUTION 2,000 ML with MVI, adult with vitamin K 10 ML IVC SCH (17:00)
[2020-09-18] MEDS: Ondansetron 4 MG/2 ML VIAL IVP PRN (20:42)
[2020-09-19] MEDS: Morphine Sulfate 2 MG/ML SYRINGE IVP PRN ×5 (00:22→17:40)
[2020-09-19] MEDS: Insulin LISPRO 300 UNITS/3 ML VIAL SUBQ SCH ×6 (03:57→21:09)
[2020-09-19] MEDS: Piperacillin/Tazobactam 3.375 GM in 0.9 % Sodium Chloride Mini Bag 100 ML IVPB SCH ×3 (04:00→18:36)
[2020-09-19] MEDS: *HR* Enoxaparin 40 MG/0.4 ML SYRINGE SQ SCH (05:53)
[2020-09-19] MEDS: Fluconazole 400 MG/200 ML 400 MG/200 ML BAG IVPB SCH (08:10)
[2020-09-19] MEDS: lisinopriL 10 MG TABLET PO SCH (08:10)
[2020-09-19] MEDS: amLODIPine 5 MG TABLET PO SCH (08:10)
[2020-09-19 12:42] LABS: Basophils # 0.1 K/mcL (0.0-0.2); Basophils % 0.6 %; Eosinophils # 0.5 K/mcL (0.0-0.6); Eosinophils % 3.3 %; Hematocrit 36.9 % (37.5-50.1); Hemoglobin 11.7 g/dL (12.9-16.9); Immature Granulocytes % 1.1 % (0-4); Lymphocytes # 2.2 K/mcL (0.6-4.6); Lymphocytes % 13.1 %; Mean Corpuscular HGB Conc 31.7 g/dL (31.6-35.5); Mean Corpuscular Hemoglobin 27.7 pg (28.0-33.3); Mean Corpuscular Volume 87.4 fL (83.0-100.0); Mean Platelet Volume 9.4 fL (9.4-12.4); Monocytes # 1.4 K/mcL (0.0-1.3); Monocytes % 8.6 %; Neutrophils # 12.1 K/mcL (1.6-8.9); Platelet Count 708 K/mcL (140-400); Red Blood Count 4.22 M/mcL (4.19-5.50); Red Cell Distribution Width 15.4 % (11.5-14.5); Segmented Neutrophils % 73.3 %; White Blood Count 16.5 K/mcL (4.3-11.1)
[2020-09-19 12:54] LABS: BUN/Creatinine Ratio 22 (6-26); Blood Urea Nitrogen 13 mg/dL (6-20); Calcium 8.5 mg/dL (8.6-10.3); Carbon Dioxide 23 mEq/L (23-29); Chloride 107 mEq/L (98-107); Glucose 91 mg/dL (70-105); Magnesium 1.9 mg/dL (1.6-2.6); Osmolality,Calculated 284 (280-300); Phosphorous 2.7 mg/dL (2.7-4.5); Potassium 4.3 mEq/L (3.5-5.1); Sodium 137 mEq/L (136-145); eGFR For African Americans > 60 (> 60); eGFR For Non-African Americans > 60 (> 60)
[2020-09-19] MEDS ORDERED: Isovue-370 500 ML BOTTLE IVP ONE (13:09)
[2020-09-19] MEDS ORDERED: Clinimix E 5%-15% SOLUTION 2,000 ML with MVI, adult with vitamin K 10 ML IVC SCH (17:00)
[2020-09-20] MEDS: Insulin LISPRO 300 UNITS/3 ML VIAL SUBQ SCH ×7 (01:04→23:15)
[2020-09-20] MEDS: Morphine Sulfate 2 MG/ML SYRINGE IVP PRN (01:09)
[2020-09-20] MEDS: Piperacillin/Tazobactam 3.375 GM in 0.9 % Sodium Chloride Mini Bag 100 ML IVPB SCH ×3 (03:34→19:54)
[2020-09-20] MEDS: *HR* Enoxaparin 40 MG/0.4 ML SYRINGE SQ SCH (05:43)
[2020-09-20 07:12] LABS: Basophils # 0.1 K/mcL (0.0-0.2); Basophils % 0.6 %; Eosinophils # 0.5 K/mcL (0.0-0.6); Eosinophils % 3.3 %; Hematocrit 35.5 % (37.5-50.1); Hemoglobin 11.9 g/dL (12.9-16.9); Immature Granulocytes % 1.5 % (0-4); Lymphocytes # 2.2 K/mcL (0.6-4.6); Lymphocytes % 13.8 %; Mean Corpuscular HGB Conc 33.5 g/dL (31.6-35.5); Mean Corpuscular Hemoglobin 29.1 pg (28.0-33.3); Mean Corpuscular Volume 86.8 fL (83.0-100.0); Mean Platelet Volume 9.6 fL (9.4-12.4); Monocytes # 1.5 K/mcL (0.0-1.3); Monocytes % 9.3 %; Neutrophils # 11.2 K/mcL (1.6-8.9); Platelet Count 756 K/mcL (140-400); Red Blood Count 4.09 M/mcL (4.19-5.50); Red Cell Distribution Width 15.6 % (11.5-14.5); Segmented Neutrophils % 71.5 %; White Blood Count 15.6 K/mcL (4.3-11.1)
[2020-09-20 07:27] LABS: BUN/Creatinine Ratio 27 (6-26); Blood Urea Nitrogen 17 mg/dL (6-20); Calcium 8.5 mg/dL (8.6-10.3); Carbon Dioxide 26 mEq/L (23-29); Chloride 103 mEq/L (98-107); Glucose 102 mg/dL (70-105); Magnesium 1.8 mg/dL (1.6-2.6); Osmolality,Calculated 286 (280-300); Phosphorous 3.5 mg/dL (2.7-4.5); Potassium 4.2 mEq/L (3.5-5.1); Sodium 137 mEq/L (136-145); eGFR For African Americans > 60 (> 60); eGFR For Non-African Americans > 60 (> 60)
[2020-09-20] MEDS: polyethylene glycoL 3350 17 GM POWD.PACK PO SCH (09:31)
[2020-09-20] MEDS: amLODIPine 5 MG TABLET PO SCH (09:32)
[2020-09-20] MEDS: lisinopriL 10 MG TABLET PO SCH (09:32)
[2020-09-20] MEDS: Ibuprofen 800 MG TABLET PO SCH ×3 (09:32→23:07)
[2020-09-20] MEDS: Fluconazole 400 MG/200 ML 400 MG/200 ML BAG IVPB SCH (09:35)
[2020-09-20] MEDS: *HR* OxyCODONE Immed Rel 5 MG TABLET PO PRN ×3 (10:33→23:07)
[2020-09-21] MEDS: Insulin LISPRO 300 UNITS/3 ML VIAL SUBQ SCH ×5 (03:55→20:47)
[2020-09-21] MEDS: Piperacillin/Tazobactam 3.375 GM in 0.9 % Sodium Chloride Mini Bag 100 ML IVPB SCH ×3 (03:59→18:33)
[2020-09-21 05:04] LABS: Hematocrit 33.4 % (37.5-50.1); Mean Corpuscular HGB Conc 32.9 g/dL (31.6-35.5); Mean Corpuscular Hemoglobin 28.9 pg (28.0-33.3); Mean Corpuscular Volume 87.9 fL (83.0-100.0); Mean Platelet Volume 9.9 fL (9.4-12.4); Platelet Count 674 K/mcL (140-400); White Blood Count 12.3 K/mcL (4.3-11.1)
[2020-09-21 05:25] LABS: BUN/Creatinine Ratio 23 (6-26); Blood Urea Nitrogen 17 mg/dL (6-20); Calcium 8.6 mg/dL (8.6-10.3); Carbon Dioxide 26 mEq/L (23-29); Chloride 105 mEq/L (98-107); Glucose 98 mg/dL (70-105); Osmolality,Calculated 286 (280-300); Potassium 4.4 mEq/L (3.5-5.1); Sodium 137 mEq/L (136-145); eGFR For African Americans > 60 (> 60); eGFR For Non-African Americans > 60 (> 60)
[2020-09-21] MEDS: *HR* OxyCODONE Immed Rel 5 MG TABLET PO PRN ×2 (05:59→16:39)
[2020-09-21] MEDS: *HR* Enoxaparin 40 MG/0.4 ML SYRINGE SQ SCH (06:00)
[2020-09-21] MEDS: lisinopriL 10 MG TABLET PO SCH (09:29)
[2020-09-21] MEDS: amLODIPine 5 MG TABLET PO SCH (09:30)
[2020-09-21] MEDS: polyethylene glycoL 3350 17 GM POWD.PACK PO SCH (09:30)
[2020-09-21] MEDS: Ibuprofen 800 MG TABLET PO SCH ×3 (09:30→23:17)
[2020-09-21] MEDS: Fluconazole 400 MG/200 ML 400 MG/200 ML BAG IVPB SCH (09:38)
[2020-09-21] MEDS: CloNIDine Patch 0.1 MG PATCH (WEEKLY) TD SCH (11:00)
[2020-09-21 20:45] VITALS: O2SAT 96
[2020-09-21] MEDS ORDERED: Insulin LISPRO 300 UNITS/3 ML VIAL SUBQ SCH (21:45)
[2020-09-22] MEDS: *HR* OxyCODONE Immed Rel 5 MG TABLET PO PRN (01:44)
[2020-09-22] MEDS: Piperacillin/Tazobactam 3.375 GM in 0.9 % Sodium Chloride Mini Bag 100 ML IVPB SCH (02:05)
[2020-09-22 02:28] LABS: Hematocrit 33.9 % (37.5-50.1); Hemoglobin 10.7 g/dL (12.9-16.9); Mean Corpuscular HGB Conc 31.6 g/dL (31.6-35.5); Mean Corpuscular Hemoglobin 28.2 pg (28.0-33.3); Mean Corpuscular Volume 89.2 fL (83.0-100.0); Mean Platelet Volume 9.7 fL (9.4-12.4); Platelet Count 703 K/mcL (140-400); Red Cell Distribution Width 16.1 % (11.5-14.5); White Blood Count 12.5 K/mcL (4.3-11.1)
[2020-09-22 02:45] LABS: BUN/Creatinine Ratio 23 (6-26); Blood Urea Nitrogen 18 mg/dL (6-20); Calcium 8.5 mg/dL (8.6-10.3); Carbon Dioxide 24 mEq/L (23-29); Chloride 105 mEq/L (98-107); Glucose 115 mg/dL (70-105); Osmolality,Calculated 287 (280-300); Potassium 4.1 mEq/L (3.5-5.1); Sodium 137 mEq/L (136-145); eGFR For African Americans > 60 (> 60); eGFR For Non-African Americans > 60 (> 60)
[2020-09-22] MEDS: *HR* Enoxaparin 40 MG/0.4 ML SYRINGE SQ SCH (06:30)
[2020-09-22] MEDS ORDERED: Insulin Regular, Human 100 UNIT/ML SUBQ SCH ×2 (07:30→21:00)
[2020-09-22] MEDS ORDERED: Insulin LISPRO 300 UNITS/3 ML VIAL SUBQ SCH (07:30)
[2020-09-22 07:41] VITALS: BP 148/96; PULSE 85; TEMP 98.2
[2020-09-22] MEDS: Ibuprofen 800 MG TABLET PO SCH (09:37)
[2020-09-22] MEDS: lisinopriL 10 MG TABLET PO SCH (09:38)
[2020-09-22] MEDS: amLODIPine 5 MG TABLET PO SCH (09:38)
[2020-09-22] MEDS: Fluconazole 400 MG/200 ML 400 MG/200 ML BAG IVPB SCH (09:38)
[2020-09-22] MEDS: polyethylene glycoL 3350 17 GM POWD.PACK PO SCH (09:38)
== END 2020-09-22 11:20 | disposition home health service (06) | DRG 710 ==
LOC: EMEROOARM 11:14 → 3ANU 11:14 → SUATTDRO 16:04 → 3ANU 17:20 → SUATTDRO 09-09 10:07
PROVIDERS: ADMIT Internal Medicine; ATTEND Internal Medicine

== ENCOUNTER 2021-01-10 06:23 | Inpatient (IN) ==
[~2021-01-10 06:23] MED LIST: Acetaminophen IV 1,000 MG/100 ML BAG IVPB ONE; Famotidine 20 MG/2 ML VIAL IVP ONE; Ringers Solution, Lactated 1,000 ML IVC ONE
[2021-01-10] MEDS ORDERED: CeFAZolin Syr 2,000MG/20 ML 2,000 MG/20 ML SYRINGE IVPB ONE (06:44)
[2021-01-10] MEDS ORDERED: *HR* Midazolam HCl 5 MG/5 ML VIAL IVP ONE (07:24)
[2021-01-10] MEDS ORDERED: *HR* FentaNYL (PF) 100 MCG/2 ML VIAL ONE (07:24)
[2021-01-10] MEDS ORDERED: *HR* Propofol 200 MG/20 ML VIAL IVP ONE (07:24)
[2021-01-10] MEDS ORDERED: Hydrocortisone Sodium Succ 100 MG/2 ML VIAL IVP ONE (07:24)
[2021-01-10] MEDS ORDERED: Lidocaine -MPF 2% 5 ML VIAL ONE (07:27)
[2021-01-10] MEDS ORDERED: *HR* Rocuronium Bromide 50 MG/5 ML VIAL ONE ×3 (07:27→10:04)
[2021-01-10] MEDS ORDERED: Lidocaine HCL 4 ML Topical Solution (Laryng-O-Jet Kit Sterile Pak) TP ONE (07:27)
[2021-01-10] MEDS ORDERED: Acetaminophen IV 1,000 MG/100 ML BAG IVPB ONE (07:31)
[2021-01-10] MEDS ORDERED: Ketamine *HR* 500 MG/10 ML MDV ONE (07:31)
[2021-01-10] MEDS ORDERED: Ondansetron 4 MG/2 ML VIAL IVP PRN (07:39)
[2021-01-10] MEDS ORDERED: Naloxone 0.4 MG/ML INJ IVP PRN ×2 (07:39→14:21)
[2021-01-10] MEDS ORDERED: Nitroglycerin 0.4 MG TAB.SUBL SL PRN (07:39)
[2021-01-10] MEDS ORDERED: Albuterol 2.5 MG/3 ML NEBULIZER IH PRN (07:39)
[2021-01-10] MEDS ORDERED: *HR* HYDROmorphone PF 0.5 MG/0.5 ML SYRINGE IVP PRN (07:39)
[2021-01-10] MEDS ORDERED: Ondansetron 4 MG/2 ML VIAL ONE (08:40)
[2021-01-10] MEDS ORDERED: Sugammadex Sodium 200 MG/2 ML VIAL IV ONE (09:04)
[2021-01-10] MEDS ORDERED: *HR* Magnesium Sulfate 1 GM/2 ML VIAL ONE (09:09)
[2021-01-10] MEDS ORDERED: *HR* Labetalol 20 MG/4 ML SYRINGE IVP ONE (09:10)
[2021-01-10] MEDS ORDERED: *HR* HYDROMORPHONE 2 MG/ML VIAL ONE ×3 (09:20→11:01)
[2021-01-10] MEDS ORDERED: Ketorolac 30 MG/ML VIAL ONE (10:25)
[2021-01-10] MEDS: *HR* FentaNYL (PF) 100 MCG/2 ML VIAL IVP PRN ×3 (11:49→22:02)
[2021-01-10] MEDS ORDERED: Lidocaine Jelly 6ml 1 APPL/6 ML JEL.PF.APP ONE ×2 (12:14→12:57)
[2021-01-10] MEDS ORDERED: *HR* OxyCODONE Immed Rel 5 MG TABLET PO PRN (14:21)
[2021-01-10] MEDS ORDERED: Ondansetron ODT 4 MG TAB.RAPDIS SL PRN (14:21)
[2021-01-10] MEDS: 0.9 % Sodium Chloride 1,000 ML IVC SCH ×2 (14:36→22:08)
[2021-01-10 15:01] LABS: Basophils % 0.2 %; Eosinophils % 0.1 %; Hematocrit 43.5 % (37.5-50.1); Hemoglobin 13.7 g/dL (12.9-16.9); Immature Granulocytes % 0.6 % (0-4); Lymphocytes # 1.4 K/mcL (0.6-4.6); Lymphocytes % 6.9 %; Mean Corpuscular HGB Conc 31.5 g/dL (31.6-35.5); Mean Corpuscular Hemoglobin 27.5 pg (28.0-33.3); Mean Corpuscular Volume 87.2 fL (83.0-100.0); Mean Platelet Volume 9.9 fL (9.4-12.4); Monocytes # 0.9 K/mcL (0.0-1.3); Monocytes % 4.5 %; Neutrophils # 17.4 K/mcL (1.6-8.9); Platelet Count 305 K/mcL (140-400); Red Blood Count 4.99 M/mcL (4.19-5.50); Red Cell Distribution Width 17.2 % (11.5-14.5); Segmented Neutrophils % 87.7 %; White Blood Count 19.8 K/mcL (4.3-11.1)
[2021-01-10 15:33] LABS: BUN/Creatinine Ratio 13 (6-26); Blood Urea Nitrogen 11 mg/dL (6-20); Calcium 8.4 mg/dL (8.6-10.3); Carbon Dioxide 23 mEq/L (23-29); Chloride 105 mEq/L (98-107); Glucose 150 mg/dL (70-105); Magnesium 2.1 mg/dL (1.6-2.6); Osmolality,Calculated 284 (280-300); Phosphorous 3.9 mg/dL (2.7-4.5); Potassium 4.6 mEq/L (3.5-5.1); Sodium 136 mEq/L (136-145); eGFR For African Americans > 60 (> 60); eGFR For Non-African Americans > 60 (> 60)
[2021-01-10] MEDS: Acetaminophen IV 1,000 MG/100 ML BAG IVPB SCH ×2 (16:39→20:17)
[2021-01-10] MEDS ORDERED: Ketorolac 30 MG/ML VIAL IVP ONE (18:09)
[2021-01-11] MEDS: *HR* FentaNYL (PF) 100 MCG/2 ML VIAL IVP PRN ×4 (03:22→20:20)
[2021-01-11] MEDS: Acetaminophen IV 1,000 MG/100 ML BAG IVPB SCH ×4 (03:54→21:50)
[2021-01-11 05:52] LABS: Basophils % 0.1 %; Hematocrit 34.8 % (37.5-50.1); Hemoglobin 11.5 g/dL (12.9-16.9); Immature Granulocytes % 0.5 % (0-4); Lymphocytes # 1.9 K/mcL (0.6-4.6); Lymphocytes % 13.2 %; Mean Corpuscular Hemoglobin 27.7 pg (28.0-33.3); Mean Corpuscular Volume 83.9 fL (83.0-100.0); Mean Platelet Volume 10.5 fL (9.4-12.4); Monocytes # 1.3 K/mcL (0.0-1.3); Neutrophils # 11.2 K/mcL (1.6-8.9); Platelet Count 306 K/mcL (140-400); Red Blood Count 4.15 M/mcL (4.19-5.50); Red Cell Distribution Width 17.2 % (11.5-14.5); Segmented Neutrophils % 77.2 %; White Blood Count 14.5 K/mcL (4.3-11.1)
[2021-01-11 06:11] LABS: BUN/Creatinine Ratio 20 (6-26); Blood Urea Nitrogen 17 mg/dL (6-20); Calcium 8.4 mg/dL (8.6-10.3); Carbon Dioxide 24 mEq/L (23-29); Chloride 104 mEq/L (98-107); Glucose 125 mg/dL (70-105); Magnesium 1.9 mg/dL (1.6-2.6); Osmolality,Calculated 283 (280-300); Phosphorous 3.2 mg/dL (2.7-4.5); Potassium 4.8 mEq/L (3.5-5.1); Sodium 135 mEq/L (136-145); eGFR For African Americans > 60 (> 60); eGFR For Non-African Americans > 60 (> 60)
[2021-01-11] MEDS: atenoloL 25 MG TABLET PO SCH (08:50)
[2021-01-11] MEDS: allopurinoL 300 MG TABLET PO SCH (08:50)
[2021-01-11] MEDS: lisinopriL 20 MG TABLET PO SCH (08:50)
[2021-01-11] MEDS ORDERED: *HR* Metoprolol 5 MG/5 ML VIAL IVP PRN (09:44)
[2021-01-11] MEDS: D5% in 0.45% NACL 1,000 ML IVC SCH ×2 (10:11→20:21)
[2021-01-11] MEDS ORDERED: D5% in 0.45% NACL w KCl 20 MEQ/1,000 ML MLS IVC SCH (11:15)
[2021-01-11] MEDS: Ketorolac 30 MG/ML VIAL IVP SCH ×3 (11:30→23:52)
[2021-01-12] MEDS: Acetaminophen IV 1,000 MG/100 ML BAG IVPB SCH ×4 (02:56→21:00)
[2021-01-12 02:59] LABS: Basophils % 0.4 %; Eosinophils # 0.1 K/mcL (0.0-0.6); Eosinophils % 0.5 %; Hematocrit 28.3 % (37.5-50.1); Immature Granulocytes % 0.4 % (0-4); Lymphocytes # 2.9 K/mcL (0.6-4.6); Lymphocytes % 26.2 %; Mean Corpuscular HGB Conc 32.9 g/dL (31.6-35.5); Mean Corpuscular Volume 85.2 fL (83.0-100.0); Monocytes % 9.1 %; Neutrophils # 7.1 K/mcL (1.6-8.9); Platelet Count 244 K/mcL (140-400); Red Blood Count 3.32 M/mcL (4.19-5.50); Red Cell Distribution Width 17.4 % (11.5-14.5); Segmented Neutrophils % 63.4 %; White Blood Count 11.2 K/mcL (4.3-11.1)
[2021-01-12 03:00] LABS: Hemoglobin 9.3 g/dL (12.9-16.9)
[2021-01-12 03:10] LABS: BUN/Creatinine Ratio 18 (6-26); Blood Urea Nitrogen 17 mg/dL (6-20); Calcium 7.9 mg/dL (8.6-10.3); Carbon Dioxide 25 mEq/L (23-29); Chloride 108 mEq/L (98-107); Glucose 125 mg/dL (70-105); Magnesium 1.8 mg/dL (1.6-2.6); Osmolality,Calculated 285 (280-300); Phosphorous 2.8 mg/dL (2.7-4.5); Potassium 4.1 mEq/L (3.5-5.1); Sodium 136 mEq/L (136-145); eGFR For African Americans > 60 (> 60); eGFR For Non-African Americans > 60 (> 60)
[2021-01-12] MEDS: Ketorolac 30 MG/ML VIAL IVP SCH ×4 (06:16→23:21)
[2021-01-12] MEDS: *HR* Enoxaparin 40 MG/0.4 ML SYRINGE SQ SCH (06:17)
[2021-01-12] MEDS: D5% in 0.45% NACL 1,000 ML IVC SCH (06:17)
[2021-01-12] MEDS: *HR* FentaNYL (PF) 100 MCG/2 ML VIAL IVP PRN ×2 (08:05→14:08)
[2021-01-12] MEDS: lisinopriL 20 MG TABLET PO SCH (08:05)
[2021-01-12] MEDS: allopurinoL 300 MG TABLET PO SCH (08:05)
[2021-01-12] MEDS: atenoloL 25 MG TABLET PO SCH (08:05)
[2021-01-12] MEDS: D5% in 0.45% NACL w KCl 20 MEQ/1,000 ML MLS IVC SCH (12:16)
[2021-01-13 05:07] LABS: Basophils # 0.1 K/mcL (0.0-0.2); Basophils % 0.6 %; Eosinophils # 0.2 K/mcL (0.0-0.6); Eosinophils % 2.5 %; Hematocrit 29.7 % (37.5-50.1); Hemoglobin 9.5 g/dL (12.9-16.9); Immature Granulocytes % 0.3 % (0-4); Lymphocytes # 2.4 K/mcL (0.6-4.6); Lymphocytes % 26.5 %; Mean Corpuscular Hemoglobin 27.1 pg (28.0-33.3); Mean Corpuscular Volume 84.9 fL (83.0-100.0); Mean Platelet Volume 10.3 fL (9.4-12.4); Monocytes # 0.7 K/mcL (0.0-1.3); Monocytes % 7.4 %; Neutrophils # 5.7 K/mcL (1.6-8.9); Platelet Count 254 K/mcL (140-400); Red Cell Distribution Width 17.1 % (11.5-14.5); Segmented Neutrophils % 62.7 %; White Blood Count 9.1 K/mcL (4.3-11.1)
[2021-01-13] MEDS: Acetaminophen IV 1,000 MG/100 ML BAG IVPB SCH ×4 (05:09→20:34)
[2021-01-13 05:24] LABS: BUN/Creatinine Ratio 18 (6-26); Blood Urea Nitrogen 14 mg/dL (6-20); Calcium 8.3 mg/dL (8.6-10.3); Carbon Dioxide 25 mEq/L (23-29); Chloride 107 mEq/L (98-107); Glucose 95 mg/dL (70-105); Magnesium 1.7 mg/dL (1.6-2.6); Osmolality,Calculated 286 (280-300); Phosphorous 2.7 mg/dL (2.7-4.5); Potassium 3.9 mEq/L (3.5-5.1); Sodium 138 mEq/L (136-145); eGFR For African Americans > 60 (> 60); eGFR For Non-African Americans > 60 (> 60)
[2021-01-13] MEDS: Ketorolac 30 MG/ML VIAL IVP SCH ×3 (05:45→16:26)
[2021-01-13] MEDS: *HR* Enoxaparin 40 MG/0.4 ML SYRINGE SQ SCH (05:45)
[2021-01-13] MEDS: allopurinoL 300 MG TABLET PO SCH (09:31)
[2021-01-13] MEDS: D5% in 0.45% NACL w KCl 20 MEQ/1,000 ML MLS IVC SCH (09:31)
[2021-01-13] MEDS: lisinopriL 20 MG TABLET PO SCH (09:31)
[2021-01-13] MEDS: atenoloL 25 MG TABLET PO SCH (12:51)
[2021-01-14] MEDS: Ketorolac 30 MG/ML VIAL IVP SCH ×2 (00:19→06:12)
[2021-01-14] MEDS: Acetaminophen IV 1,000 MG/100 ML BAG IVPB SCH (03:53)
[2021-01-14] MEDS: *HR* Enoxaparin 40 MG/0.4 ML SYRINGE SQ SCH (06:14)
[2021-01-14] MEDS: D5% in 0.45% NACL w KCl 20 MEQ/1,000 ML MLS IVC SCH (06:37)
[2021-01-14] MEDS: lisinopriL 20 MG TABLET PO SCH (08:23)
[2021-01-14] MEDS: atenoloL 25 MG TABLET PO SCH (08:23)
[2021-01-14] MEDS: allopurinoL 300 MG TABLET PO SCH (08:23)
[2021-01-14 10:46] VITALS: BP 127/83; PULSE 69; TEMP 98.2; O2SAT 96
== END 2021-01-14 13:30 | disposition home or self-care (01) | DRG 231 ==
LOC: SAMDAY 06:23 → 3ANU 13:40
PROVIDERS: ADMIT Surgery; ATTEND Surgery

== ENCOUNTER 2021-07-16 13:48 | Inpatient (IN) ==
[~2021-07-16 13:48] MED LIST changes: -Famotidine 20 MG/2 ML VIAL IVP ONE; -Ringers Solution, Lactated 1,000 ML IVC ONE
[2021-07-16] MEDS ORDERED: EPHEDrine 50 MG/ML VIAL ONE (14:36)
[2021-07-16] MEDS ORDERED: *HR* Magnesium Sulfate 1 GM/2 ML VIAL ONE (14:36)
[2021-07-16] MEDS ORDERED: Ondansetron 4 MG/2 ML VIAL IVP PRN ×2 (14:45→21:54)
[2021-07-16] MEDS ORDERED: Ringers Solution, Lactated 1,000 ML IVC SCH (14:45)
[2021-07-16] MEDS ORDERED: *HR* Meperidine 25 MG/ML SYRINGE IVP PRN (14:45)
[2021-07-16] MEDS ORDERED: Albuterol 2.5 MG/3 ML NEBULIZER IH PRN (14:45)
[2021-07-16] MEDS ORDERED: CeFAZolin Syr 2,000MG/20 ML 2,000 MG/20 ML SYRINGE IVPB ONE (15:00)
[2021-07-16] MEDS ORDERED: *HR* Rocuronium Bromide 50 MG/5 ML VIAL ONE ×4 (15:06→19:07)
[2021-07-16] MEDS ORDERED: Ondansetron 4 MG/2 ML VIAL ONE ×2 (15:06→18:55)
[2021-07-16] MEDS ORDERED: Lidocaine -MPF 2% 2 ML VIAL ONE (15:06)
[2021-07-16] MEDS ORDERED: Lidocaine -MPF 4% 5 ML AMPUL ONE (15:06)
[2021-07-16] MEDS ORDERED: *HR* FentaNYL (PF) 100 MCG/2 ML VIAL ONE (15:06)
[2021-07-16] MEDS ORDERED: *HR* Propofol 200 MG/20 ML VIAL IVP ONE (15:06)
[2021-07-16] MEDS ORDERED: *HR* Midazolam HCl 2 MG/2 ML VIAL ONE (15:06)
[2021-07-16] MEDS ORDERED: Lidocaine 1% 20 ML MDV ONE (15:33)
[2021-07-16] MEDS ORDERED: *HR* Phenylephrine 10 MG/ML VIAL ONE (15:46)
[2021-07-16] MEDS ORDERED: Ketamine HCL *QUVA* 50mg (1mL) SYRINGE ONE (16:28)
[2021-07-16] MEDS ORDERED: ROPIVACAINE/PF/NS 0.25% 1 EACH SYRINGE INTRAART ONE (16:38)
[2021-07-16] MEDS ORDERED: *HR* HYDROMORPHONE 2 MG/ML VIAL ONE (16:48)
[2021-07-16] MEDS ORDERED: *HR* Labetalol 20 MG/4 ML SYRINGE IVP ONE (16:57)
[2021-07-16] MEDS ORDERED: Ketorolac 30 MG/ML VIAL ONE (19:53)
[2021-07-16] MEDS ORDERED: Haloperidol Lactate 5 MG/ML VIAL ONE (20:31)
[2021-07-16] MEDS: *HR* HYDROmorphone PF 0.5 MG/0.5 ML SYRINGE IVP PRN ×3 (20:53→21:12)
[2021-07-16] MEDS ORDERED: 0.9 % Sodium Chloride 1,000 ML IVC SCH (21:54)
[2021-07-16] MEDS ORDERED: *HR* HYDROmorphone PCA *PREMADE* 20 MG/1MG/ML (20mL) PCA VIAL IVC PRN (21:54)
[2021-07-16] MEDS: Orphenadrine 60 MG/2 ML VIAL IVP PRN (23:26)
[2021-07-17] MEDS: Ipratropium/Albuterol Neb 3 ML IH SCH ×5 (03:38→21:12)
[2021-07-17] MEDS: *HR* Metoprolol 5 MG/5 ML VIAL IVP PRN ×2 (06:22→11:36)
[2021-07-17] MEDS ORDERED: Acetaminophen IV 1,000 MG/100 ML BAG IVPB ONE (08:13)
[2021-07-17 09:11] LABS: Alanine Aminotransferase 12 Units/L (7-52); Albumin 3.5 g/dL (3.5-5.7); Albumin/Globulin Ratio 1.7 (1.1-2.2); Alkaline Phosphatase 45 Units/L (34-104); Aspartate Amino Transferase 17 Units/L (13-39); BUN/Creatinine Ratio 19 (6-26); Basophils % 0.1 %; Bilirubin,Total 0.8 mg/dL (0.3-1.0); Blood Urea Nitrogen 15 mg/dL (6-20); Calcium 8.4 mg/dL (8.6-10.3); Carbon Dioxide 27 mEq/L (23-29); Chloride 103 mEq/L (98-107); Globulin 2.1 g/dL (2.4-3.5); Glucose 125 mg/dL (70-105); Hematocrit 39.6 % (37.5-50.1); Hemoglobin 13.2 g/dL (12.9-16.9); Immature Granulocytes % 0.4 % (0-4); Lymphocytes # 2.3 K/mcL (0.6-4.6); Lymphocytes % 16.2 %; Magnesium 1.9 mg/dL (1.6-2.6); Mean Corpuscular HGB Conc 33.3 g/dL (31.6-35.5); Mean Corpuscular Hemoglobin 28.3 pg (28.0-33.3); Mean Platelet Volume 10.3 fL (9.4-12.4); Monocytes # 1.5 K/mcL (0.0-1.3); Monocytes % 10.1 %; Neutrophils # 10.5 K/mcL (1.6-8.9); Osmolality,Calculated 282 (280-300); Phosphorous 3.9 mg/dL (2.7-4.5); Platelet Count 315 K/mcL (140-400); Potassium 4.7 mEq/L (3.5-5.1); Red Blood Count 4.66 M/mcL (4.19-5.50); Red Cell Distribution Width 15.3 % (11.5-14.5); Segmented Neutrophils % 73.2 %; Sodium 135 mEq/L (136-145); Total Protein 5.6 g/dL (6.4-8.9); White Blood Count 14.4 K/mcL (4.3-11.1); eGFR For African Americans > 60 (> 60); eGFR For Non-African Americans > 60 (> 60)
[2021-07-17] MEDS: D5% in 0.45% NACL w KCl 20 MEQ/1,000 ML MLS IVC SCH (11:25)
[2021-07-17] MEDS ORDERED: Ketorolac 30 MG/ML VIAL IVP SCH (12:09)
[2021-07-17] MEDS: Pantoprazole 40 MG in 0.9 % Sodium Chloride 50 ML IVPB SCH (12:42)
[2021-07-17] MEDS: Acetaminophen IV 1,000 MG/100 ML BAG IVPB SCH ×2 (15:37→21:13)
[2021-07-17] MEDS: Orphenadrine 60 MG/2 ML VIAL IVP PRN (17:03)
[2021-07-17] MEDS: Ketorolac 30 MG/ML VIAL IVP SCH (21:12)
[2021-07-18] MEDS: D5% in 0.45% NACL w KCl 20 MEQ/1,000 ML MLS IVC SCH ×2 (01:31→16:07)
[2021-07-18] MEDS: Acetaminophen IV 1,000 MG/100 ML BAG IVPB SCH ×4 (03:00→20:52)
[2021-07-18] MEDS: Ketorolac 30 MG/ML VIAL IVP SCH ×4 (03:00→20:51)
[2021-07-18] MEDS: Ipratropium/Albuterol Neb 3 ML IH SCH ×4 (03:35→20:18)
[2021-07-18 06:07] LABS: Basophils # 0.1 K/mcL (0.0-0.2); Basophils % 0.4 %; Eosinophils # 0.1 K/mcL (0.0-0.6); Eosinophils % 0.7 %; Hematocrit 39.1 % (37.5-50.1); Hemoglobin 12.9 g/dL (12.9-16.9); Immature Granulocytes % 0.2 % (0-4); Lymphocytes # 2.4 K/mcL (0.6-4.6); Lymphocytes % 18.9 %; Mean Corpuscular Hemoglobin 28.9 pg (28.0-33.3); Mean Corpuscular Volume 87.5 fL (83.0-100.0); Mean Platelet Volume 10.2 fL (9.4-12.4); Monocytes # 1.1 K/mcL (0.0-1.3); Monocytes % 8.9 %; Neutrophils # 8.8 K/mcL (1.6-8.9); Platelet Count 243 K/mcL (140-400); Red Blood Count 4.47 M/mcL (4.19-5.50); Red Cell Distribution Width 15.4 % (11.5-14.5); Segmented Neutrophils % 70.9 %; White Blood Count 12.5 K/mcL (4.3-11.1)
[2021-07-18 06:24] LABS: Alanine Aminotransferase 9 Units/L (7-52); Albumin 3.3 g/dL (3.5-5.7); Albumin/Globulin Ratio 1.5 (1.1-2.2); Alkaline Phosphatase 40 Units/L (34-104); Aspartate Amino Transferase 17 Units/L (13-39); BUN/Creatinine Ratio 15 (6-26); Bilirubin,Total 0.9 mg/dL (0.3-1.0); Blood Urea Nitrogen 11 mg/dL (6-20); Calcium 8.3 mg/dL (8.6-10.3); Carbon Dioxide 28 mEq/L (23-29); Chloride 103 mEq/L (98-107); Globulin 2.2 g/dL (2.4-3.5); Glucose 132 mg/dL (70-105); Magnesium 1.7 mg/dL (1.6-2.6); Osmolality,Calculated 283 (280-300); Phosphorous 2.6 mg/dL (2.7-4.5); Potassium 4.2 mEq/L (3.5-5.1); Sodium 136 mEq/L (136-145); Total Protein 5.5 g/dL (6.4-8.9); eGFR For African Americans > 60 (> 60); eGFR For Non-African Americans > 60 (> 60)
[2021-07-18] MEDS: *HR* Metoprolol 5 MG/5 ML VIAL IVP PRN (06:51)
[2021-07-18] MEDS: *HR* Heparin 5,000 UNIT/ML VIAL SQ SCH ×2 (06:52→18:48)
[2021-07-18] MEDS ORDERED: Potassium Phosphate 44 MEQ in 0.9 % Sodium Chloride 250 ML IVPB ONE (08:07)
[2021-07-18] MEDS: Pantoprazole 40 MG in 0.9 % Sodium Chloride 50 ML IVPB SCH (11:30)
[2021-07-18] MEDS: Orphenadrine 60 MG/2 ML VIAL IVP PRN (16:05)
[2021-07-18] MEDS: *HR* HYDROmorphone PCA *PREMADE* 20 MG/1MG/ML (20mL) PCA VIAL IVC PRN (17:11)
[2021-07-19] MEDS: Ketorolac 30 MG/ML VIAL IVP SCH ×4 (03:07→20:29)
[2021-07-19] MEDS: Acetaminophen IV 1,000 MG/100 ML BAG IVPB SCH ×4 (03:08→20:28)
[2021-07-19] MEDS: Ipratropium/Albuterol Neb 3 ML IH SCH ×4 (03:51→21:55)
[2021-07-19] MEDS: *HR* Heparin 5,000 UNIT/ML VIAL SQ SCH ×2 (05:49→16:58)
[2021-07-19] MEDS: D5% in 0.45% NACL w KCl 20 MEQ/1,000 ML MLS IVC SCH ×2 (05:50→19:38)
[2021-07-19] MEDS: Pantoprazole 40 MG in 0.9 % Sodium Chloride 50 ML IVPB SCH (09:44)
[2021-07-19] MEDS: *HR* HYDROmorphone PCA *PREMADE* 20 MG/1MG/ML (20mL) PCA VIAL IVC PRN (19:39)
[2021-07-20] MEDS: Ketorolac 30 MG/ML VIAL IVP SCH ×4 (02:14→20:29)
[2021-07-20] MEDS: Acetaminophen IV 1,000 MG/100 ML BAG IVPB SCH ×4 (02:15→20:28)
[2021-07-20] MEDS: *HR* Heparin 5,000 UNIT/ML VIAL SQ SCH ×2 (05:14→17:45)
[2021-07-20] MEDS: Pantoprazole 40 MG in 0.9 % Sodium Chloride 50 ML IVPB SCH (09:27)
[2021-07-20] MEDS: D5% in 0.45% NACL w KCl 20 MEQ/1,000 ML MLS IVC SCH (09:27)
[2021-07-20] MEDS: *HR* Metoprolol 5 MG/5 ML VIAL IVP PRN (12:09)
[2021-07-20] MEDS: *HR* HYDROmorphone PCA *PREMADE* 20 MG/1MG/ML (20mL) PCA VIAL IVC PRN (22:27)
[2021-07-21] MEDS: Ketorolac 30 MG/ML VIAL IVP SCH (02:07)
[2021-07-21] MEDS: Acetaminophen IV 1,000 MG/100 ML BAG IVPB SCH (02:08)
[2021-07-21] MEDS: *HR* Heparin 5,000 UNIT/ML VIAL SQ SCH (05:07)
[2021-07-21] MEDS: D5% in 0.45% NACL w KCl 20 MEQ/1,000 ML MLS IVC SCH (05:08)
[2021-07-21] MEDS ORDERED: *HR* OxyCODONE Immed Rel 5 MG TABLET PO PRN (07:33)
[2021-07-21] MEDS ORDERED: *HR* OxyCODONE Immed Rel 5 MG TABLET PO ONE (07:34)
[2021-07-21] MEDS ORDERED: methocarbamoL 500 MG TABLET PO SCH (09:00)
[2021-07-21] MEDS ORDERED: Pantoprazole 40 MG VIAL IVP SCH (09:00)
[2021-07-21] MEDS ORDERED: Gabapentin 300 MG CAPSULE PO SCH (09:00)
[2021-07-21] MEDS ORDERED: Ibuprofen 600 MG TABLET PO SCH (09:00)
[2021-07-21 10:34] VITALS: BP 164/84; PULSE 96; TEMP 98.7; O2SAT 96
[2021-07-21] MEDS ORDERED: Acetaminophen 325 MG TABLET PO SCH (12:00)
== END 2021-07-21 14:32 | disposition home or self-care (01) | DRG 227 ==
LOC: SAMDAY 13:48 → 3ANU 19:54
PROVIDERS: ADMIT Surgery; ATTEND Surgery